=== PATIENT | male | born 1965 | race Caucasian/White ===

== ENCOUNTER 2019-10-09 07:25 | Day surgery (SDC) | payer BC ==
[~2019-10-09] VITALS: Ht 172.7 cm; Wt 103.0 kg
[~2019-10-09 07:25] MED LIST: ALLO100T PO; AMLO10TA PO; ATOR1TAB21 PO; FLOM0.4C39 PO; LR 1,000 ML IV ONE; OMEP40CA97 PO; SING10TA32 PO; VALA500T5 PO; ceFAZolin SOD 2 GM in IV 1 EA IV ONE
[2019-10-09] MEDS ORDERED: ONDANSETRON 4MG/2ML VIAL (J2405) As Ordered ONE (09:05)
[2019-10-09] MEDS ORDERED: PROPOFOL 200 MG/20 ML VIAL As Ordered ONE (09:05)
[2019-10-09] MEDS ORDERED: LIDOCAINE 2% INJ 100 MG/5 ML SDV (FOR ANES.) As Ordered ONE (09:05)
[2019-10-09] MEDS ORDERED: dexameTHASONE 4 MG/ML 1ML VIAL (J1100) As Ordered ONE (09:05)
[2019-10-09] MEDS ORDERED: fentaNYL 100 MCG/2 ML INJECTION (J3010) As Ordered ONE (09:09)
[2019-10-09] MEDS ORDERED: CONRAY-60 60% 50ML VIAL (Q9961) As Ordered ONE (11:37)
[2019-10-09] MEDS ORDERED: KETOROLAC 60 MG/2 ML VIAL (J1885) As Ordered ONE (12:44)
--- NOTE | 2019-10-09 12:51 | REP ---
Retrograde pyelogram: Three views. History: Cystoscopy, left-sided stent. 16 seconds of fluoroscopy time is reported. Findings: A sequence of three last image hold fluoroscopically obtained spot radiographs of the abdomen document left ureteral cannulation and contrast injection and left ureteral stent placement. Electronically Signed by Maury Quach MD 10/09/2019 12:43 P
[2019-10-09] MEDS ORDERED: LR 1,000 ML IV SCH (13:15)
[2019-10-09] MEDS ORDERED: ONDANSETRON 4MG/2ML VIAL (J2405) IV PRN (13:15)
[2019-10-09] MEDS ORDERED: METOCLOPRAMIDE INJ 10MG/2ML VIAL (J2765) IV PRN (13:15)
[2019-10-09] MEDS ORDERED: fentaNYL 100 MCG/2 ML INJECTION (J3010) IV PRN (13:15)
[2019-10-09] MEDS ORDERED: PERCOCET 5MG/325MG TAB PO PRN (13:15)
[2019-10-09 13:30] VITALS: BP 158/78
--- NOTE | 2019-10-09 13:31 | RO ---
DATE OF PROCEDURE: 10/09/2019 PREPROCEDURE DIAGNOSIS: Left kidney stones. POSTPROCEDURE DIAGNOSIS: Left kidney stones. PROCEDURE: Cystoscopy, left ureteroscopy with laser lithotripsy and basket extraction of stones, left retrograde pyelogram with intraoperative interpretation of images, left ureteral stent placement. SURGEON: Dr. Chadwick Antonio SILK PRESSER: None. ANESTHESIA: General. OPERATIVE INDICATIONS: This is a 54-year-old male who was recently found to have several nonobstructing left kidney stones measuring up to 7 mm in size. He was brought to the operating room today for treatment. DESCRIPTION OF PROCEDURE: The patient was brought to the operating room, where general anesthesia was induced. Prophylactic antibiotics were infused. He was then placed in the dorsal lithotomy position and prepped and draped in the usual sterile fashion. A rigid cystoscope was then inserted into the urethral meatus and advanced into the bladder. A guidewire was advanced up the left collecting system. I then advanced a ureteral access sheath over the wire and into the left collecting system. I then went up the access sheath with the flexible ureteroscope and then examined the left kidney thoroughly. At this point, approximately three stones were found in the left kidney that were around 7 mm in size. All these stones were fragmented into smaller pieces using a 272 micron laser fiber. All the fragments were then removed using a basket. Once done, there was just very tiny stone debris that should be small enough to pass. A retrograde pyelogram was performed and was notable for mild left hydronephrosis and no extravasation. I then withdrew the ureteroscope along with the access sheath and no additional stones were seen within the ureter. I then utilized the wire to advance a #6-[place] x 22-32 cm JJ ureteral stent up into the left collecting system. The wire was then removed, and there were adequate curls of the stent in the left renal pelvis and in the bladder. The bladder was then emptied of all fluid, and this marked the conclusion of the procedure. The patient was then taken out of the dorsal lithotomy position, awakened from anesthesia, and transported to the recovery room in stable condition. ESTIMATED BLOOD LOSS: 5 mL. COMPLICATIONS: None. SPECIMENS: Kidney stone fragments. PLAN: The patient will followup in the clinic in a 1 week or 2 for stent removal and to discuss stone analysis results. KRISTI
[2019-10-09] MEDS ORDERED: ACETAMINOPHEN TAB 650MG DOSE (2X325MG) PO PRN (14:00)
== END 2019-10-09 14:05 | disposition home or self-care (01) ==
LOC: M SDC 07:25
PROVIDERS: ATTEND Urology
DX: N20.0 Calculus of kidney (principal); I10 Essential (primary) hypertension; E78.5 Hyperlipidemia, unspecified; K21.9 Gastro-esophageal reflux disease without esophagitis; G47.30 Sleep apnea, unspecified; Z91.030 Bee allergy status; F17.220 Nicotine dependence, chewing tobacco, uncomplicated; Z79.899 Other long term (current) drug therapy
CPT/HCPCS: 52356; 74420; 82360; 88300; C1769; C1894; J0690; J1100; J1885; J2405; J3010; Q9961

== ENCOUNTER → 2022-04-03 | Outpatient (REF) | payer BC ==
[~2022-04-03] MED LIST changes: -LR 1,000 ML IV ONE; +OMEP40CA4 PO; -OMEP40CA97 PO; -ceFAZolin SOD 2 GM in IV 1 EA IV ONE
[2022-04-03 13:16] LABS: AMORPHOUS SEDIMENT SMALL (NEGATIVE); APPEARANCE, URINE CLEAR (CLEAR); BACTERIA, URINE AUTO NEGATIVE (NEGATIVE); BILIRUBIN, URINE AUTO NEGATIVE (NEGATIVE); BLOOD, URINE BLOOD NEGATIVE (NEGATIVE); COLOR, URINE YELLOW (YELLOW); GLUCOSE, URINE (UA) AUTO 3+ mg/dL (NEGATIVE); KETONE, URINE AUTO NEGATIVE (NEGATIVE); LEUKOCYTE ESTERASE, URINE AUTO NEGATIVE (NEGATIVE); NITRITE, URINE AUTO NEGATIVE (NEGATIVE); PROTEIN, URINE AUTO NEGATIVE (NEGATIVE); RBC, URINE AUTO 0 /HPF (0-3); SPECIFIC GRAVITY URINE AUTO 1.009 (1.002-1.035); SQUAMOUS EPITHELIAL CELL UR AU 0 /HPF (0-6); UROBILINOGEN, URINE AUTO 0.2 mg/dL (0.0-2.0); WBC, URINE AUTO 0 /HPF (0-3)
== END ==
LOC: M SMT 12:45
PROVIDERS: ATTEND Nurse Practitioner Women's Health
DX: R10.9 Unspecified abdominal pain (principal)